=== PATIENT | male | born 1940 | race Caucasian/White ===

== ENCOUNTER 2021-09-10 13:39 | Inpatient (IN) | payer OTHER ==
[2021-09-10] MEDS ORDERED: PIPERACILLIN/TAZOB 4.5 GM 4.5 GM in DEXTROSE 5%-WATER 100 ML IVPB ONE (15:02)
[2021-09-10] MEDS ORDERED: VANCOMYCIN 1 GM in D5W (PRE-DOCKED) 1,000 MG/250 ML IVPB ONE (15:02)
[2021-09-10 15:43] LABS: BASO % 1.1 % (0-2.0); EOS % 0.6 % (0-4.5); HEMATOCRIT 37.1 % (35.4-49); HEMOGLOBIN 12.7 GM/dL (11.7-16.9); LYMPH % 16.5 % (8-40); MCH 41.4 pg (25.7-33.7); MCHC 34.1 g/dl (32.0-35.9); MEAN CELL VOLUME 121.2 fl (80-96); MEAN PLT VOLUME 7.1 fl (7.5-11.1); MONO % 9.1 % (3.8-10.2); NEUT % 72.7 % (42.8-82.8); PLATELET COUNT 459 10^3/uL (134-434); RBC 3.07 M/mm3 (4.00-5.60); RDW 13.9 % (11.9-15.9); WHITE BLOOD COUNT 3.8 K/mm3 (4.0-10.0)
[2021-09-10 15:50] LABS: INR 2.97 (0.83-1.09); PROTHROMBIN TIME (PATIENT) 34.5 SEC (9.7-13.0)
[2021-09-10 15:52] LABS: ACTIVATED PTT 43.3 SECONDS (25.2-36.5)
[2021-09-10 16:01] LABS: ANISOCYTOSIS 3+; MACROCYTOSIS 3+; OVALOCYTE 2+; PLATELET ESTIMATE INCREASED
[2021-09-10 16:07] LABS: BLOOD UREA NITROGEN 18.8 mg/dL (7-18); CALCIUM 8.6 mg/dL (8.5-10.1)
[2021-09-10 16:08] LABS: ALBUMIN 3.8 g/dl (3.4-5.0)
[2021-09-10 16:10] LABS: CREATININE 0.9 mg/dL (0.55-1.3)
[2021-09-10 16:12] LABS: BILIRUBIN,TOTAL 1.2 mg/dL (0.2-1)
[2021-09-10] MEDS ORDERED: PIPERACILLIN/TAZOB 4.5 GM 4.5 GM/100 ML BAG IVPB ONE (16:14)
[2021-09-10] MEDS ORDERED: VANCOMYCIN 1 GRAM (PRE-DOCKED) 1,000 MG/250 ML BAG IVPB ONE (16:14)
[2021-09-10] MEDS ORDERED: PANTOPRAZOLE 40 MG TABLET ONE (17:49)
[2021-09-10] MEDS ORDERED: WARFARIN NA 5 MG TABLET ONE (17:49)
[2021-09-10] MEDS: PANTOPRAZOLE 40 MG TABLET PO SCH (17:54)
[2021-09-10] MEDS ORDERED: WARFARIN NA 5 MG TABLET PO ONE (18:00)
[2021-09-10] MEDS: TERAZOSIN HCL 5 MG CAPSULE PO SCH (22:26)
[2021-09-11 08:29] LABS: BASO % 1.8 % (0-2.0); EOS % 0.8 % (0-4.5); HEMATOCRIT 35.3 % (35.4-49); HEMOGLOBIN 12.4 GM/dL (11.7-16.9); LYMPH % 22.7 % (8-40); MCHC 35.1 g/dl (32.0-35.9); MEAN CELL VOLUME 122.1 fl (80-96); MEAN PLT VOLUME 7.4 fl (7.5-11.1); MONO % 13.1 % (3.8-10.2); NEUT % 61.6 % (42.8-82.8); PLATELET COUNT 424 10^3/uL (134-434); RBC 2.89 M/mm3 (4.00-5.60); WHITE BLOOD COUNT 3.8 K/mm3 (4.0-10.0)
[2021-09-11 08:32] LABS: MCH 42.9 pg (25.7-33.7)
[2021-09-11 08:49] LABS: CHOLESTEROL 90 mg/dL (50-200); LDL CHOLESTEROL (ONLY SJRH) 40 mg/dL (5-100); TRIGLYCERIDES 108 mg/dL (0-150)
[2021-09-11 08:52] LABS: HDL CHOLESTEROL 32 mg/dL (40-60)
[2021-09-11 08:57] LABS: INR 2.95 (0.83-1.09); PROTHROMBIN TIME (PATIENT) 34.3 SEC (9.7-13.0)
[2021-09-11] MEDS: PANTOPRAZOLE 40 MG TABLET PO SCH (11:00)
[2021-09-11] MEDS: LOSARTAN POTASSIUM 50 MG TABLET PO SCH (11:00)
[2021-09-11] MEDS: FUROSEMIDE 40 MG TABLET (FP) PO SCH (11:00)
[2021-09-11] MEDS ORDERED: LOSARTAN POTASSIUM 50 MG TABLET ONE (11:30)
[2021-09-11] MEDS ORDERED: PANTOPRAZOLE 40 MG TABLET ONE (11:30)
[2021-09-11] MEDS ORDERED: FUROSEMIDE 40 MG TABLET (FP) ONE (11:30)
[2021-09-11] MEDS: COLLAGENASE CLOSTRIDIUM HIST. 30 GRAMS TUBE TP SCH (13:13)
[2021-09-11] MEDS: FINASTERIDE 5 MG TABLET (FP) PO SCH (13:13)
[2021-09-11] MEDS ORDERED: CHOLECALCIFEROL (VIT D3) 1,000 UNIT (25 MCG) TABLET ONE (16:52)
[2021-09-11] MEDS ORDERED: ZINC SULFATE 220 MG CAPSULE (FP) ONE (16:52)
[2021-09-11] MEDS ORDERED: PIPERACILLIN/TAZOB 3.375 GM 3.375 GM/50 ML BAG IVPB ONE (16:53)
[2021-09-11] MEDS: ZINC SULFATE 220 MG CAPSULE (FP) PO SCH (17:28)
[2021-09-11] MEDS: CHOLECALCIFEROL (VIT D3) 5000 UNITS (125 MCG) CAP PO SCH (17:29)
[2021-09-11] MEDS: PIPERACILLIN/TAZOB 3.375 GM 3.375 GM/50 ML BAG IVPB SCH ×2 (17:29→18:09)
[2021-09-11] MEDS ORDERED: WARFARIN NA 5 MG TABLET PO ONE (18:00)
[2021-09-11] MEDS: MELATONIN 5 MG TABLETS PO PRN (21:28)
[2021-09-11] MEDS: ASCORBIC ACID 500 MG TABLET (FP) PO SCH (21:29)
[2021-09-11] MEDS ORDERED: ASCORBIC ACID 500 MG TABLET (FP) PO SCH (22:00)
[2021-09-11] MEDS: TERAZOSIN HCL 5 MG CAPSULE PO SCH (23:35)
[2021-09-12] MEDS ORDERED: DEXTROSE 5%-WATER - 50 ML IVPB ONE ×3 (01:20→17:58)
[2021-09-12] MEDS ORDERED: PIPERACILLIN/TAZOBACTAM 3.375 GM VIAL IVPB ONE ×3 (01:20→17:58)
[2021-09-12] MEDS: PIPERACILLIN/TAZOB 3.375 GM 3.375 GM in DEXTROSE 5%-WATER - 50 ML IVPB SCH ×3 (01:20→18:03)
[2021-09-12] MEDS ORDERED: PT OWN MED DRAWER 7, Y5N ONE ×3 (09:25→21:43)
[2021-09-12 09:30] LABS: BASO % 1.7 % (0-2.0); EOS % 1.4 % (0-4.5); HEMATOCRIT 36.9 % (35.4-49); HEMOGLOBIN 12.7 GM/dL (11.7-16.9); LYMPH % 20.2 % (8-40); MCHC 34.3 g/dl (32.0-35.9); MEAN CELL VOLUME 122.3 fl (80-96); MEAN PLT VOLUME 7.4 fl (7.5-11.1); MONO % 10.4 % (3.8-10.2); NEUT % 66.3 % (42.8-82.8); PLATELET COUNT 440 10^3/uL (134-434); RBC 3.02 M/mm3 (4.00-5.60); RDW 13.6 % (11.9-15.9); WHITE BLOOD COUNT 3.6 K/mm3 (4.0-10.0)
[2021-09-12] MEDS: LOSARTAN POTASSIUM 50 MG TABLET PO SCH (09:30)
[2021-09-12] MEDS: FUROSEMIDE 40 MG TABLET (FP) PO SCH (09:31)
[2021-09-12] MEDS: PANTOPRAZOLE 40 MG TABLET PO SCH (09:31)
[2021-09-12] MEDS: ZINC SULFATE 220 MG CAPSULE (FP) PO SCH (09:31)
[2021-09-12] MEDS: ASCORBIC ACID 500 MG TABLET (FP) PO SCH ×2 (09:31→22:05)
[2021-09-12] MEDS: FINASTERIDE 5 MG TABLET (FP) PO SCH (09:31)
[2021-09-12 09:39] LABS: INR 3.51 (0.83-1.09); PROTHROMBIN TIME (PATIENT) 40.9 SEC (9.7-13.0)
[2021-09-12] MEDS ORDERED: FLU VACC QS2021-22(6MOS UP)/PF 60 MCG/0.5 ML SYRINGE IM ONE (10:00)
[2021-09-12] MEDS: COLLAGENASE CLOSTRIDIUM HIST. 30 GRAMS TUBE TP SCH (10:30)
[2021-09-12] MEDS: CHOLECALCIFEROL (VIT D3) 5000 UNITS (125 MCG) CAP PO SCH (10:37)
[2021-09-12] MEDS: VITAMIN A 10,000 UNITS (3000 MCG) CAPSULE PO SCH (10:38)
[2021-09-12] MEDS ORDERED: WARFARIN NA 2.5 MG TABLET PO ONE (18:00)
[2021-09-12] MEDS: TERAZOSIN HCL 5 MG CAPSULE PO SCH (22:05)
[2021-09-12] MEDS: MELATONIN 5 MG TABLETS PO PRN (22:05)
[2021-09-13] MEDS ORDERED: PIPERACILLIN/TAZOBACTAM 3.375 GM VIAL IVPB ONE ×3 (00:54→17:13)
[2021-09-13] MEDS ORDERED: DEXTROSE 5%-WATER - 50 ML IVPB ONE ×3 (00:55→17:13)
[2021-09-13] MEDS: PIPERACILLIN/TAZOB 3.375 GM 3.375 GM in DEXTROSE 5%-WATER - 50 ML IVPB SCH ×3 (01:01→18:37)
[2021-09-13 09:19] LABS: BASO % 1.4 % (0-2.0); EOS % 2.4 % (0-4.5); HEMATOCRIT 37.1 % (35.4-49); HEMOGLOBIN 12.8 GM/dL (11.7-16.9); LYMPH % 19.2 % (8-40); MCHC 34.4 g/dl (32.0-35.9); MEAN CELL VOLUME 121.3 fl (80-96); MEAN PLT VOLUME 7.6 fl (7.5-11.1); MONO % 11.1 % (3.8-10.2); NEUT % 65.9 % (42.8-82.8); PLATELET COUNT 425 10^3/uL (134-434); RBC 3.06 M/mm3 (4.00-5.60); RDW 13.4 % (11.9-15.9); WHITE BLOOD COUNT 3.3 K/mm3 (4.0-10.0)
[2021-09-13 09:20] LABS: MCH 41.8 pg (25.7-33.7)
[2021-09-13 09:25] LABS: INR 3.59 (0.83-1.09); PROTHROMBIN TIME (PATIENT) 41.8 SEC (9.7-13.0)
[2021-09-13] MEDS: ZINC SULFATE 220 MG CAPSULE (FP) PO SCH (09:49)
[2021-09-13] MEDS: LOSARTAN POTASSIUM 50 MG TABLET PO SCH (09:49)
[2021-09-13] MEDS: ASCORBIC ACID 500 MG TABLET (FP) PO SCH ×2 (09:49→21:28)
[2021-09-13] MEDS: FUROSEMIDE 40 MG TABLET (FP) PO SCH (09:49)
[2021-09-13] MEDS: PANTOPRAZOLE 40 MG TABLET PO SCH (09:49)
[2021-09-13] MEDS: FINASTERIDE 5 MG TABLET (FP) PO SCH (09:49)
[2021-09-13] MEDS: VITAMIN A 10,000 UNITS (3000 MCG) CAPSULE PO SCH (09:50)
[2021-09-13] MEDS: CHOLECALCIFEROL (VIT D3) 5000 UNITS (125 MCG) CAP PO SCH (09:51)
[2021-09-13] MEDS: COLLAGENASE CLOSTRIDIUM HIST. 30 GRAMS TUBE TP SCH (09:53)
[2021-09-13] MEDS ORDERED: WARFARIN NA 1 MG TABLET PO ONE (18:00)
[2021-09-13] MEDS ORDERED: PT OWN MED DRAWER 7, Y5N ONE (21:03)
[2021-09-13] MEDS: MELATONIN 5 MG TABLETS PO PRN (21:28)
[2021-09-13] MEDS: TERAZOSIN HCL 5 MG CAPSULE PO SCH (21:28)
[2021-09-14] MEDS ORDERED: DEXTROSE 5%-WATER - 50 ML IVPB ONE ×4 (00:48→23:01)
[2021-09-14] MEDS ORDERED: PIPERACILLIN/TAZOBACTAM 3.375 GM VIAL IVPB ONE ×4 (00:48→23:01)
[2021-09-14] MEDS: PIPERACILLIN/TAZOB 3.375 GM 3.375 GM in DEXTROSE 5%-WATER - 50 ML IVPB SCH ×3 (02:04→17:27)
[2021-09-14] MEDS ORDERED: PT OWN MED DRAWER 7, Y5N ONE ×2 (09:12→20:52)
[2021-09-14] MEDS: COLLAGENASE CLOSTRIDIUM HIST. 30 GRAMS TUBE TP SCH (09:17)
[2021-09-14] MEDS: ASCORBIC ACID 500 MG TABLET (FP) PO SCH ×2 (09:18→21:23)
[2021-09-14] MEDS: VITAMIN A 10,000 UNITS (3000 MCG) CAPSULE PO SCH (09:18)
[2021-09-14] MEDS: PANTOPRAZOLE 40 MG TABLET PO SCH (09:18)
[2021-09-14] MEDS: FUROSEMIDE 40 MG TABLET (FP) PO SCH (09:19)
[2021-09-14] MEDS: CHOLECALCIFEROL (VIT D3) 5000 UNITS (125 MCG) CAP PO SCH (09:19)
[2021-09-14] MEDS: ZINC SULFATE 220 MG CAPSULE (FP) PO SCH (09:19)
[2021-09-14] MEDS: FINASTERIDE 5 MG TABLET (FP) PO SCH (09:19)
[2021-09-14] MEDS: LOSARTAN POTASSIUM 50 MG TABLET PO SCH (09:19)
[2021-09-14 11:58] LABS: INR 3.41 (0.83-1.09); PROTHROMBIN TIME (PATIENT) 39.7 SEC (9.7-13.0)
[2021-09-14 11:59] LABS: BASO % 1.2 % (0-2.0); HEMATOCRIT 34.5 % (35.4-49); HEMOGLOBIN 11.9 GM/dL (11.7-16.9); LYMPH % 15.7 % (8-40); MCHC 34.5 g/dl (32.0-35.9); MEAN CELL VOLUME 121.3 fl (80-96); MEAN PLT VOLUME 7.6 fl (7.5-11.1); MONO % 12.9 % (3.8-10.2); NEUT % 68.2 % (42.8-82.8); PLATELET COUNT 442 10^3/uL (134-434); RBC 2.85 M/mm3 (4.00-5.60); RDW 13.6 % (11.9-15.9); WHITE BLOOD COUNT 4.4 K/mm3 (4.0-10.0)
[2021-09-14 12:24] LABS: MCH 41.8 pg (25.7-33.7)
[2021-09-14 13:50] LABS: ANISOCYTOSIS 3+; MACROCYTOSIS 3+; OVALOCYTE 1+; PLATELET ESTIMATE NORMAL
[2021-09-14] MEDS ORDERED: WARFARIN NA 1 MG TABLET PO ONE (18:00)
[2021-09-14] MEDS: TERAZOSIN HCL 5 MG CAPSULE PO SCH (21:23)
[2021-09-14] MEDS: MELATONIN 5 MG TABLETS PO PRN (21:23)
[2021-09-14 22:47] VITALS: BMI 30.4
[2021-09-15] MEDS: PIPERACILLIN/TAZOB 3.375 GM 3.375 GM in DEXTROSE 5%-WATER - 50 ML IVPB SCH ×3 (02:30→17:14)
[2021-09-15] MEDS ORDERED: DEXTROSE 5%-WATER - 50 ML IVPB ONE ×3 (09:29→17:10)
[2021-09-15] MEDS ORDERED: PIPERACILLIN/TAZOBACTAM 3.375 GM VIAL IVPB ONE ×3 (09:29→17:10)
[2021-09-15] MEDS: LOSARTAN POTASSIUM 50 MG TABLET PO SCH (09:36)
[2021-09-15] MEDS: ASCORBIC ACID 500 MG TABLET (FP) PO SCH ×2 (09:37→21:23)
[2021-09-15] MEDS: FUROSEMIDE 40 MG TABLET (FP) PO SCH (09:37)
[2021-09-15] MEDS: FINASTERIDE 5 MG TABLET (FP) PO SCH (09:37)
[2021-09-15] MEDS: ZINC SULFATE 220 MG CAPSULE (FP) PO SCH (09:37)
[2021-09-15] MEDS: PANTOPRAZOLE 40 MG TABLET PO SCH (09:37)
[2021-09-15 11:00] LABS: BASO % 1.9 % (0-2.0); EOS % 3.3 % (0-4.5); HEMOGLOBIN 12.2 GM/dL (11.7-16.9); LYMPH % 17.9 % (8-40); MCHC 33.9 g/dl (32.0-35.9); MEAN CELL VOLUME 122.7 fl (80-96); MEAN PLT VOLUME 7.8 fl (7.5-11.1); MONO % 10.1 % (3.8-10.2); NEUT % 66.8 % (42.8-82.8); PLATELET COUNT 427 10^3/uL (134-434); RBC 2.94 M/mm3 (4.00-5.60); RDW 13.6 % (11.9-15.9); WHITE BLOOD COUNT 4.4 K/mm3 (4.0-10.0)
[2021-09-15 11:06] LABS: INR 2.84 (0.83-1.09); MCH 41.6 pg (25.7-33.7)
[2021-09-15] MEDS: VITAMIN A 10,000 UNITS (3000 MCG) CAPSULE PO SCH (12:30)
[2021-09-15] MEDS: CHOLECALCIFEROL (VIT D3) 5000 UNITS (125 MCG) CAP PO SCH (12:30)
[2021-09-15] MEDS: COLLAGENASE CLOSTRIDIUM HIST. 30 GRAMS TUBE TP SCH (12:31)
[2021-09-15] MEDS ORDERED: WARFARIN NA 2.5 MG TABLET PO ONE (18:00)
[2021-09-15] MEDS: MELATONIN 5 MG TABLETS PO PRN (21:23)
[2021-09-15] MEDS: TERAZOSIN HCL 5 MG CAPSULE PO SCH (21:24)
[2021-09-16] MEDS ORDERED: DEXTROSE 5%-WATER - 50 ML IVPB ONE ×3 (01:20→17:07)
[2021-09-16] MEDS ORDERED: PIPERACILLIN/TAZOBACTAM 3.375 GM VIAL IVPB ONE ×3 (01:20→17:07)
[2021-09-16] MEDS: PIPERACILLIN/TAZOB 3.375 GM 3.375 GM in DEXTROSE 5%-WATER - 50 ML IVPB SCH ×3 (01:20→17:23)
[2021-09-16 08:38] LABS: BASO % 2.4 % (0-2.0); EOS % 3.5 % (0-4.5); HEMATOCRIT 37.6 % (35.4-49); HEMOGLOBIN 12.6 GM/dL (11.7-16.9); LYMPH % 19.1 % (8-40); MCHC 33.5 g/dl (32.0-35.9); MEAN PLT VOLUME 7.9 fl (7.5-11.1); MONO % 12.2 % (3.8-10.2); NEUT % 62.8 % (42.8-82.8); PLATELET COUNT 493 10^3/uL (134-434); RDW 13.2 % (11.9-15.9); WHITE BLOOD COUNT 4.9 K/mm3 (4.0-10.0)
[2021-09-16 08:40] LABS: MCH 40.5 pg (25.7-33.7)
[2021-09-16 08:42] LABS: INR 2.24 (0.83-1.09)
[2021-09-16 08:56] LABS: CALCIUM 8.4 mg/dL (8.5-10.1)
[2021-09-16 08:57] LABS: ALBUMIN 3.3 g/dl (3.4-5.0); BLOOD UREA NITROGEN 19.3 mg/dL (7-18)
[2021-09-16 09:02] LABS: BILIRUBIN,TOTAL 0.8 mg/dL (0.2-1); TOT PROT 6.1 g/dl (6.4-8.2)
[2021-09-16] MEDS: LOSARTAN POTASSIUM 50 MG TABLET PO SCH (11:09)
[2021-09-16] MEDS: COLLAGENASE CLOSTRIDIUM HIST. 30 GRAMS TUBE TP SCH (11:10)
[2021-09-16] MEDS: ASCORBIC ACID 500 MG TABLET (FP) PO SCH ×2 (11:10→22:10)
[2021-09-16] MEDS: FUROSEMIDE 40 MG TABLET (FP) PO SCH (11:10)
[2021-09-16] MEDS: ZINC SULFATE 220 MG CAPSULE (FP) PO SCH (11:10)
[2021-09-16] MEDS: PANTOPRAZOLE 40 MG TABLET PO SCH (11:10)
[2021-09-16] MEDS: VITAMIN A 10,000 UNITS (3000 MCG) CAPSULE PO SCH (11:11)
[2021-09-16] MEDS: FINASTERIDE 5 MG TABLET (FP) PO SCH (11:11)
[2021-09-16] MEDS: CHOLECALCIFEROL (VIT D3) 5000 UNITS (125 MCG) CAP PO SCH (11:11)
[2021-09-16] MEDS: TERAZOSIN HCL 5 MG CAPSULE PO SCH (22:09)
[2021-09-16] MEDS: MELATONIN 5 MG TABLETS PO PRN (22:10)
[2021-09-17] MEDS ORDERED: PIPERACILLIN/TAZOBACTAM 3.375 GM VIAL IVPB ONE ×2 (00:09→17:04)
[2021-09-17] MEDS ORDERED: DEXTROSE 5%-WATER - 50 ML IVPB ONE ×2 (00:10→17:04)
[2021-09-17] MEDS: PIPERACILLIN/TAZOB 3.375 GM 3.375 GM in DEXTROSE 5%-WATER - 50 ML IVPB SCH ×3 (01:06→17:45)
[2021-09-17] MEDS ORDERED: LIDOCAINE HCL 1%, 10 MG/ML (20ML VIAL) ONE (07:19)
[2021-09-17] MEDS ORDERED: BUPIVACAINE HCL/PF 0.5% (5MG/ML) 10 ML VIAL ONE ×2 (07:19→07:41)
[2021-09-17] MEDS ORDERED: PROPOFOL 20 ML ONE ×2 (07:37)
[2021-09-17] MEDS ORDERED: DEXAMETHASONE SOD PHOSPHATE 4 MG/1 ML VIAL ONE (07:41)
[2021-09-17 08:18] LABS: INR 1.9 (0.83-1.09)
[2021-09-17] MEDS: ZINC SULFATE 220 MG CAPSULE (FP) PO SCH (10:00)
[2021-09-17] MEDS: FINASTERIDE 5 MG TABLET (FP) PO SCH (10:00)
[2021-09-17] MEDS: ASCORBIC ACID 500 MG TABLET (FP) PO SCH ×2 (10:01→21:50)
[2021-09-17] MEDS: CHOLECALCIFEROL (VIT D3) 5000 UNITS (125 MCG) CAP PO SCH (10:01)
[2021-09-17] MEDS: LOSARTAN POTASSIUM 50 MG TABLET PO SCH (10:01)
[2021-09-17] MEDS: COLLAGENASE CLOSTRIDIUM HIST. 30 GRAMS TUBE TP SCH (10:01)
[2021-09-17] MEDS: VITAMIN A 10,000 UNITS (3000 MCG) CAPSULE PO SCH (10:01)
[2021-09-17] MEDS: FUROSEMIDE 40 MG TABLET (FP) PO SCH (10:01)
[2021-09-17] MEDS: PANTOPRAZOLE 40 MG TABLET PO SCH (10:01)
[2021-09-17] MEDS ORDERED: WARFARIN NA 5 MG TABLET PO ONE (18:00)
[2021-09-17] MEDS: TERAZOSIN HCL 5 MG CAPSULE PO SCH (21:50)
[2021-09-17] MEDS: MELATONIN 5 MG TABLETS PO PRN (21:53)
[2021-09-18] MEDS ORDERED: PIPERACILLIN/TAZOBACTAM 3.375 GM VIAL IVPB ONE ×3 (02:20→17:25)
[2021-09-18] MEDS ORDERED: DEXTROSE 5%-WATER - 50 ML IVPB ONE ×3 (02:20→17:25)
[2021-09-18] MEDS: PIPERACILLIN/TAZOB 3.375 GM 3.375 GM in DEXTROSE 5%-WATER - 50 ML IVPB SCH ×3 (02:25→17:51)
[2021-09-18] MEDS: FINASTERIDE 5 MG TABLET (FP) PO SCH (09:34)
[2021-09-18] MEDS: VITAMIN A 10,000 UNITS (3000 MCG) CAPSULE PO SCH (09:34)
[2021-09-18] MEDS: ASCORBIC ACID 500 MG TABLET (FP) PO SCH ×2 (09:34→21:20)
[2021-09-18] MEDS: LOSARTAN POTASSIUM 50 MG TABLET PO SCH (09:34)
[2021-09-18] MEDS: FUROSEMIDE 40 MG TABLET (FP) PO SCH (09:34)
[2021-09-18] MEDS: PANTOPRAZOLE 40 MG TABLET PO SCH (09:34)
[2021-09-18] MEDS: ZINC SULFATE 220 MG CAPSULE (FP) PO SCH (09:34)
[2021-09-18] MEDS: CHOLECALCIFEROL (VIT D3) 5000 UNITS (125 MCG) CAP PO SCH (09:35)
[2021-09-18] MEDS: COLLAGENASE CLOSTRIDIUM HIST. 30 GRAMS TUBE TP SCH (10:17)
[2021-09-18 10:27] LABS: INR 1.57 (0.83-1.09); PROTHROMBIN TIME (PATIENT) 18.1 SEC (9.7-13.0)
[2021-09-18 10:28] LABS: BASO % 2.6 % (0-2.0); EOS % 2.5 % (0-4.5); HEMOGLOBIN 12.5 GM/dL (11.7-16.9); LYMPH % 14.6 % (8-40); MCH 41.8 pg (25.7-33.7); MCHC 34.8 g/dl (32.0-35.9); MEAN CELL VOLUME 120.1 fl (80-96); MEAN PLT VOLUME 7.9 fl (7.5-11.1); MONO % 11.2 % (3.8-10.2); NEUT % 69.1 % (42.8-82.8); PLATELET COUNT 520 10^3/uL (134-434); RDW 13.2 % (11.9-15.9); WHITE BLOOD COUNT 4.9 K/mm3 (4.0-10.0)
[2021-09-18 12:32] LABS: ANISOCYTOSIS 2+; MACROCYTOSIS 2+; OVALOCYTE 1+; PLATELET ESTIMATE INCREASED; TEAR DROP CELLS 1+
[2021-09-18] MEDS: TERAZOSIN HCL 5 MG CAPSULE PO SCH (21:20)
[2021-09-18] MEDS: MELATONIN 5 MG TABLETS PO PRN (21:25)
[2021-09-19] MEDS: ZINC SULFATE 220 MG CAPSULE (FP) PO SCH (09:14)
[2021-09-19] MEDS: LOSARTAN POTASSIUM 50 MG TABLET PO SCH (09:14)
[2021-09-19] MEDS: FINASTERIDE 5 MG TABLET (FP) PO SCH (09:14)
[2021-09-19] MEDS: VITAMIN A 10,000 UNITS (3000 MCG) CAPSULE PO SCH (09:14)
[2021-09-19] MEDS: FUROSEMIDE 40 MG TABLET (FP) PO SCH (09:14)
[2021-09-19] MEDS: PANTOPRAZOLE 40 MG TABLET PO SCH (09:14)
[2021-09-19] MEDS: CHOLECALCIFEROL (VIT D3) 5000 UNITS (125 MCG) CAP PO SCH (09:14)
[2021-09-19] MEDS: ASCORBIC ACID 500 MG TABLET (FP) PO SCH ×2 (09:14→21:08)
[2021-09-19 11:26] LABS: INR 1.5 (0.83-1.09); PROTHROMBIN TIME (PATIENT) 17.3 SEC (9.7-13.0)
[2021-09-19] MEDS: COLLAGENASE CLOSTRIDIUM HIST. 30 GRAMS TUBE TP SCH (11:48)
[2021-09-19] MEDS: MELATONIN 5 MG TABLETS PO PRN (21:08)
[2021-09-19] MEDS: TERAZOSIN HCL 5 MG CAPSULE PO SCH (21:08)
[2021-09-19] MEDS ORDERED: DEXTROSE 5%-WATER - 50 ML IVPB ONE (22:13)
[2021-09-19] MEDS ORDERED: PIPERACILLIN/TAZOBACTAM 3.375 GM VIAL IVPB ONE (22:13)
[2021-09-19] MEDS: PIPERACILLIN/TAZOB 3.375 GM 3.375 GM in DEXTROSE 5%-WATER - 50 ML IVPB SCH (22:19)
[2021-09-20] MEDS ORDERED: PIPERACILLIN/TAZOBACTAM 3.375 GM VIAL IVPB ONE ×3 (05:42→22:22)
[2021-09-20] MEDS ORDERED: DEXTROSE 5%-WATER - 50 ML IVPB ONE ×3 (05:43→22:22)
[2021-09-20] MEDS: PIPERACILLIN/TAZOB 3.375 GM 3.375 GM in DEXTROSE 5%-WATER - 50 ML IVPB SCH ×3 (06:13→22:35)
[2021-09-20] MEDS: LOSARTAN POTASSIUM 50 MG TABLET PO SCH (09:00)
[2021-09-20] MEDS: ZINC SULFATE 220 MG CAPSULE (FP) PO SCH (09:03)
[2021-09-20] MEDS: PANTOPRAZOLE 40 MG TABLET PO SCH (09:03)
[2021-09-20] MEDS: VITAMIN A 10,000 UNITS (3000 MCG) CAPSULE PO SCH (09:03)
[2021-09-20] MEDS: FINASTERIDE 5 MG TABLET (FP) PO SCH (09:04)
[2021-09-20] MEDS: CHOLECALCIFEROL (VIT D3) 5000 UNITS (125 MCG) CAP PO SCH (09:04)
[2021-09-20] MEDS: FUROSEMIDE 40 MG TABLET (FP) PO SCH (09:04)
[2021-09-20] MEDS: ACETAMINOPHEN 325 MG TABLET (FP) PO PRN (09:04)
[2021-09-20] MEDS: ASCORBIC ACID 500 MG TABLET (FP) PO SCH ×2 (09:04→22:35)
[2021-09-20] MEDS: COLLAGENASE CLOSTRIDIUM HIST. 30 GRAMS TUBE TP SCH (09:05)
[2021-09-20 12:35] LABS: INR 1.37 (0.83-1.09); PROTHROMBIN TIME (PATIENT) 15.8 SEC (9.7-13.0)
[2021-09-20 12:36] LABS: BASO % 0.6 % (0-2.0); EOS % 2.1 % (0-4.5); HEMATOCRIT 38.4 % (35.4-49); HEMOGLOBIN 12.7 GM/dL (11.7-16.9); LYMPH % 6.9 % (8-40); MCHC 33.1 g/dl (32.0-35.9); MEAN CELL VOLUME 122.1 fl (80-96); MEAN PLT VOLUME 7.7 fl (7.5-11.1); NEUT % 76.4 % (42.8-82.8); PLATELET COUNT 673 10^3/uL (134-434); RBC 3.15 M/mm3 (4.00-5.60); RDW 13.4 % (11.9-15.9); WHITE BLOOD COUNT 5.6 K/mm3 (4.0-10.0)
[2021-09-20 12:39] LABS: MCH 40.4 pg (25.7-33.7)
[2021-09-20 13:24] LABS: CALCIUM 8.6 mg/dL (8.5-10.1)
[2021-09-20 13:25] LABS: BLOOD UREA NITROGEN 19.6 mg/dL (7-18)
[2021-09-20 13:28] LABS: CREATININE 1.1 mg/dL (0.55-1.3)
[2021-09-20] MEDS: TERAZOSIN HCL 5 MG CAPSULE PO SCH (22:35)
[2021-09-20] MEDS: MELATONIN 5 MG TABLETS PO PRN (22:36)
[2021-09-21] MEDS ORDERED: DEXTROSE 5%-WATER - 50 ML IVPB ONE ×3 (05:55→21:09)
[2021-09-21] MEDS ORDERED: PIPERACILLIN/TAZOBACTAM 3.375 GM VIAL IVPB ONE ×3 (05:55→21:08)
[2021-09-21] MEDS: PIPERACILLIN/TAZOB 3.375 GM 3.375 GM in DEXTROSE 5%-WATER - 50 ML IVPB SCH ×3 (06:03→21:11)
[2021-09-21] MEDS ORDERED: PROPOFOL 20 ML ONE ×3 (07:15)
[2021-09-21] MEDS ORDERED: MIDAZOLAM HCL 2 MG/2 ML SINGLE DOSE VIAL ONE (07:15)
[2021-09-21] MEDS ORDERED: SUCCINYLCHOLINE CHLORIDE 200 MG/10 ML SYRINGE ONE (07:16)
[2021-09-21] MEDS ORDERED: GENTAMICIN SO4 80 MG/2 ML VIAL ONE (07:32)
[2021-09-21] MEDS ORDERED: PROMETHAZINE HCL 25 MG/1 ML VIAL IVPUSH PRN (07:37)
[2021-09-21] MEDS ORDERED: ONDANSETRON 4 MG/2 ML VIAL IVPUSH PRN (07:37)
[2021-09-21] MEDS ORDERED: LACTATED RINGERS SOLUTION 1,000 ML IV SCH ×2 (07:45→20:03)
[2021-09-21] MEDS ORDERED: LIDOCAINE HCL 1%, 10 MG/ML (20ML VIAL) NR ONE (07:50)
[2021-09-21] MEDS ORDERED: BUPIVACAINE HCL/PF 0.5% (5MG/ML) 10 ML VIAL IJ ONE (07:50)
[2021-09-21] MEDS: COLLAGENASE CLOSTRIDIUM HIST. 30 GRAMS TUBE TP SCH (09:33)
[2021-09-21] MEDS: ZINC SULFATE 220 MG CAPSULE (FP) PO SCH (09:35)
[2021-09-21] MEDS: FINASTERIDE 5 MG TABLET (FP) PO SCH (09:36)
[2021-09-21] MEDS: PANTOPRAZOLE 40 MG TABLET PO SCH (09:36)
[2021-09-21] MEDS: LOSARTAN POTASSIUM 50 MG TABLET PO SCH (09:36)
[2021-09-21] MEDS: ASCORBIC ACID 500 MG TABLET (FP) PO SCH ×2 (09:36→21:11)
[2021-09-21] MEDS: FUROSEMIDE 40 MG TABLET (FP) PO SCH (09:36)
[2021-09-21] MEDS: VITAMIN A 10,000 UNITS (3000 MCG) CAPSULE PO SCH (09:38)
[2021-09-21] MEDS: CHOLECALCIFEROL (VIT D3) 5000 UNITS (125 MCG) CAP PO SCH (09:38)
[2021-09-21 13:20] LABS: BASO % 1.7 % (0-2.0); EOS % 3.2 % (0-4.5); HEMOGLOBIN 12.6 GM/dL (11.7-16.9); INR 1.32 (0.83-1.09); LYMPH % 10.9 % (8-40); MCHC 34.1 g/dl (32.0-35.9); MEAN CELL VOLUME 119.5 fl (80-96); MEAN PLT VOLUME 7.4 fl (7.5-11.1); NEUT % 72.2 % (42.8-82.8); PLATELET COUNT 644 10^3/uL (134-434); PROTHROMBIN TIME (PATIENT) 15.2 SEC (9.7-13.0); RDW 13.6 % (11.9-15.9); WHITE BLOOD COUNT 4.9 K/mm3 (4.0-10.0)
[2021-09-21 13:42] LABS: MCH 40.8 pg (25.7-33.7)
[2021-09-21] MEDS: ACETAMINOPHEN 325 MG TABLET (FP) PO PRN ×2 (14:20→21:11)
[2021-09-21] MEDS ORDERED: WARFARIN NA 5 MG TABLET PO ONE (18:00)
[2021-09-21] MEDS: MELATONIN 5 MG TABLETS PO PRN (21:11)
[2021-09-21] MEDS: TERAZOSIN HCL 5 MG CAPSULE PO SCH (21:13)
[2021-09-22] MEDS ORDERED: DEXTROSE 5%-WATER - 50 ML IVPB ONE ×3 (04:51→20:34)
[2021-09-22] MEDS ORDERED: PIPERACILLIN/TAZOBACTAM 3.375 GM VIAL IVPB ONE ×3 (04:51→20:34)
[2021-09-22] MEDS: PIPERACILLIN/TAZOB 3.375 GM 3.375 GM in DEXTROSE 5%-WATER - 50 ML IVPB SCH ×3 (05:30→21:04)
[2021-09-22] MEDS: ACETAMINOPHEN 325 MG TABLET (FP) PO PRN ×2 (05:33→20:59)
[2021-09-22] MEDS: ZINC SULFATE 220 MG CAPSULE (FP) PO SCH (09:21)
[2021-09-22] MEDS: PANTOPRAZOLE 40 MG TABLET PO SCH (09:21)
[2021-09-22] MEDS: FUROSEMIDE 40 MG TABLET (FP) PO SCH (09:21)
[2021-09-22] MEDS: LOSARTAN POTASSIUM 50 MG TABLET PO SCH (09:21)
[2021-09-22] MEDS: FINASTERIDE 5 MG TABLET (FP) PO SCH (09:21)
[2021-09-22] MEDS: ASCORBIC ACID 500 MG TABLET (FP) PO SCH ×2 (09:21→20:59)
[2021-09-22] MEDS: VITAMIN A 10,000 UNITS (3000 MCG) CAPSULE PO SCH (09:21)
[2021-09-22] MEDS: CHOLECALCIFEROL (VIT D3) 5000 UNITS (125 MCG) CAP PO SCH (09:22)
[2021-09-22 10:43] LABS: INR 1.48 (0.83-1.09); PROTHROMBIN TIME (PATIENT) 17.1 SEC (9.7-13.0)
[2021-09-22] MEDS ORDERED: WARFARIN NA 5 MG TABLET PO ONE (18:00)
[2021-09-22] MEDS: MELATONIN 5 MG TABLETS PO PRN (20:59)
[2021-09-22] MEDS: TERAZOSIN HCL 5 MG CAPSULE PO SCH (20:59)
[2021-09-23] MEDS ORDERED: PIPERACILLIN/TAZOBACTAM 3.375 GM VIAL IVPB ONE ×3 (04:38→21:49)
[2021-09-23] MEDS ORDERED: DEXTROSE 5%-WATER - 50 ML IVPB ONE ×3 (04:39→21:49)
[2021-09-23] MEDS: PIPERACILLIN/TAZOB 3.375 GM 3.375 GM in DEXTROSE 5%-WATER - 50 ML IVPB SCH ×3 (06:28→21:53)
[2021-09-23] MEDS: ZINC SULFATE 220 MG CAPSULE (FP) PO SCH (09:59)
[2021-09-23] MEDS: ASCORBIC ACID 500 MG TABLET (FP) PO SCH ×2 (09:59→21:53)
[2021-09-23] MEDS: FINASTERIDE 5 MG TABLET (FP) PO SCH (10:00)
[2021-09-23] MEDS: PANTOPRAZOLE 40 MG TABLET PO SCH (10:00)
[2021-09-23] MEDS: VITAMIN A 10,000 UNITS (3000 MCG) CAPSULE PO SCH (10:00)
[2021-09-23] MEDS: FUROSEMIDE 40 MG TABLET (FP) PO SCH (10:00)
[2021-09-23] MEDS: LOSARTAN POTASSIUM 50 MG TABLET PO SCH (10:00)
[2021-09-23] MEDS: CHOLECALCIFEROL (VIT D3) 5000 UNITS (125 MCG) CAP PO SCH (10:01)
[2021-09-23 11:41] LABS: BASO % 1.5 % (0-2.0); EOS % 1.8 % (0-4.5); HEMATOCRIT 33.8 % (35.4-49); HEMOGLOBIN 11.3 GM/dL (11.7-16.9); LYMPH % 8.2 % (8-40); MCH 39.9 pg (25.7-33.7); MCHC 33.4 g/dl (32.0-35.9); MEAN CELL VOLUME 119.5 fl (80-96); MEAN PLT VOLUME 7.8 fl (7.5-11.1); MONO % 13.2 % (3.8-10.2); NEUT % 75.3 % (42.8-82.8); PLATELET COUNT 697 10^3/uL (134-434); RBC 2.83 M/mm3 (4.00-5.60); RDW 13.6 % (11.9-15.9); WHITE BLOOD COUNT 6.5 K/mm3 (4.0-10.0)
[2021-09-23 11:48] LABS: INR 1.47 (0.83-1.09)
[2021-09-23] MEDS ORDERED: WARFARIN NA 10 MG TABLET PO ONE (18:00)
[2021-09-23] MEDS: TERAZOSIN HCL 5 MG CAPSULE PO SCH (21:53)
[2021-09-24] MEDS ORDERED: PIPERACILLIN/TAZOBACTAM 3.375 GM VIAL IVPB ONE ×3 (05:58→20:42)
[2021-09-24] MEDS ORDERED: DEXTROSE 5%-WATER - 50 ML IVPB ONE ×3 (05:59→20:42)
[2021-09-24] MEDS: PIPERACILLIN/TAZOB 3.375 GM 3.375 GM in DEXTROSE 5%-WATER - 50 ML IVPB SCH ×3 (06:11→21:25)
[2021-09-24 10:37] LABS: BASO % 3.1 % (0-2.0); EOS % 1.9 % (0-4.5); HEMATOCRIT 37.7 % (35.4-49); HEMOGLOBIN 12.7 GM/dL (11.7-16.9); LYMPH % 7.4 % (8-40); MCH 39.8 pg (25.7-33.7); MCHC 33.7 g/dl (32.0-35.9); MEAN CELL VOLUME 118.4 fl (80-96); MEAN PLT VOLUME 7.4 fl (7.5-11.1); MONO % 11.6 % (3.8-10.2); PLATELET COUNT 814 10^3/uL (134-434); RBC 3.19 M/mm3 (4.00-5.60); RDW 13.7 % (11.9-15.9); WHITE BLOOD COUNT 5.8 K/mm3 (4.0-10.0)
[2021-09-24 10:38] LABS: INR 1.75 (0.83-1.09); PROTHROMBIN TIME (PATIENT) 20.2 SEC (9.7-13.0)
[2021-09-24] MEDS: ASCORBIC ACID 500 MG TABLET (FP) PO SCH ×2 (10:57→21:25)
[2021-09-24] MEDS: ZINC SULFATE 220 MG CAPSULE (FP) PO SCH (10:57)
[2021-09-24] MEDS: FUROSEMIDE 40 MG TABLET (FP) PO SCH (10:58)
[2021-09-24] MEDS: LOSARTAN POTASSIUM 50 MG TABLET PO SCH (10:58)
[2021-09-24] MEDS: PANTOPRAZOLE 40 MG TABLET PO SCH (10:58)
[2021-09-24] MEDS: FINASTERIDE 5 MG TABLET (FP) PO SCH (10:58)
[2021-09-24] MEDS: CHOLECALCIFEROL (VIT D3) 5000 UNITS (125 MCG) CAP PO SCH (10:59)
[2021-09-24] MEDS: VITAMIN A 10,000 UNITS (3000 MCG) CAPSULE PO SCH (10:59)
[2021-09-24] MEDS ORDERED: WARFARIN NA 7.5 MG TABLET PO ONE (18:00)
[2021-09-24] MEDS: TERAZOSIN HCL 5 MG CAPSULE PO SCH (21:27)
[2021-09-24] MEDS: MELATONIN 5 MG TABLETS PO PRN (21:33)
[2021-09-25] MEDS ORDERED: DEXTROSE 5%-WATER - 50 ML IVPB ONE ×3 (05:03→21:00)
[2021-09-25] MEDS ORDERED: PIPERACILLIN/TAZOBACTAM 3.375 GM VIAL IVPB ONE ×3 (05:03→21:00)
[2021-09-25] MEDS: ACETAMINOPHEN 325 MG TABLET (FP) PO PRN (05:07)
[2021-09-25] MEDS: PIPERACILLIN/TAZOB 3.375 GM 3.375 GM in DEXTROSE 5%-WATER - 50 ML IVPB SCH ×3 (05:07→21:10)
[2021-09-25] MEDS: ASCORBIC ACID 500 MG TABLET (FP) PO SCH ×2 (09:19→21:11)
[2021-09-25] MEDS: PANTOPRAZOLE 40 MG TABLET PO SCH (09:19)
[2021-09-25] MEDS: LOSARTAN POTASSIUM 50 MG TABLET PO SCH (09:19)
[2021-09-25] MEDS: FUROSEMIDE 40 MG TABLET (FP) PO SCH (09:19)
[2021-09-25] MEDS: FINASTERIDE 5 MG TABLET (FP) PO SCH (09:19)
[2021-09-25] MEDS: ZINC SULFATE 220 MG CAPSULE (FP) PO SCH (09:19)
[2021-09-25] MEDS: CHOLECALCIFEROL (VIT D3) 5000 UNITS (125 MCG) CAP PO SCH (09:20)
[2021-09-25] MEDS: VITAMIN A 10,000 UNITS (3000 MCG) CAPSULE PO SCH (09:20)
[2021-09-25 09:41] LABS: INR 2.2 (0.83-1.09); PROTHROMBIN TIME (PATIENT) 25.5 SEC (9.7-13.0)
[2021-09-25] MEDS ORDERED: WARFARIN NA 5 MG TABLET PO ONE (18:00)
[2021-09-25] MEDS: TERAZOSIN HCL 5 MG CAPSULE PO SCH (21:11)
[2021-09-25] MEDS: MELATONIN 5 MG TABLETS PO PRN (21:11)
[2021-09-26] MEDS ORDERED: PIPERACILLIN/TAZOBACTAM 3.375 GM VIAL IVPB ONE ×3 (04:48→17:23)
[2021-09-26] MEDS ORDERED: DEXTROSE 5%-WATER - 50 ML IVPB ONE ×3 (04:49→17:23)
[2021-09-26] MEDS: PIPERACILLIN/TAZOB 3.375 GM 3.375 GM in DEXTROSE 5%-WATER - 50 ML IVPB SCH ×3 (05:04→18:01)
[2021-09-26] MEDS: FUROSEMIDE 40 MG TABLET (FP) PO SCH (09:27)
[2021-09-26] MEDS: ASCORBIC ACID 500 MG TABLET (FP) PO SCH ×2 (09:27→21:24)
[2021-09-26] MEDS: LOSARTAN POTASSIUM 50 MG TABLET PO SCH (09:27)
[2021-09-26] MEDS: ZINC SULFATE 220 MG CAPSULE (FP) PO SCH (09:28)
[2021-09-26] MEDS: CHOLECALCIFEROL (VIT D3) 5000 UNITS (125 MCG) CAP PO SCH (09:28)
[2021-09-26] MEDS: PANTOPRAZOLE 40 MG TABLET PO SCH (09:28)
[2021-09-26] MEDS: FINASTERIDE 5 MG TABLET (FP) PO SCH (09:28)
[2021-09-26] MEDS: VITAMIN A 10,000 UNITS (3000 MCG) CAPSULE PO SCH (09:28)
[2021-09-26 09:34] LABS: BASO % 1.7 % (0-2.0); EOS % 3.7 % (0-4.5); HEMATOCRIT 38.7 % (35.4-49); HEMOGLOBIN 12.7 GM/dL (11.7-16.9); LYMPH % 9.7 % (8-40); MCH 38.9 pg (25.7-33.7); MCHC 32.8 g/dl (32.0-35.9); MEAN CELL VOLUME 118.6 fl (80-96); MEAN PLT VOLUME 7.6 fl (7.5-11.1); MONO % 11.6 % (3.8-10.2); NEUT % 73.3 % (42.8-82.8); PLATELET COUNT 904 10^3/uL (134-434); RBC 3.26 M/mm3 (4.00-5.60); RDW 14.2 % (11.9-15.9); WHITE BLOOD COUNT 5.2 K/mm3 (4.0-10.0)
[2021-09-26 09:39] LABS: INR 2.81 (0.83-1.09); PROTHROMBIN TIME (PATIENT) 32.6 SEC (9.7-13.0)
[2021-09-26 11:31] LABS: ANISOCYTOSIS 2+; MACROCYTOSIS 2+; OVALOCYTE 1+; PLATELET ESTIMATE INCREASED
[2021-09-26] MEDS ORDERED: AMOX TR/POT CLAV 875MG/125MG TABLETS (FP) PO SCH (17:30)
[2021-09-26] MEDS ORDERED: WARFARIN NA 2.5 MG TABLET PO ONE (18:00)
[2021-09-26] MEDS: TERAZOSIN HCL 5 MG CAPSULE PO SCH (21:24)
[2021-09-26] MEDS: MELATONIN 5 MG TABLETS PO PRN (21:24)
[2021-09-26] MEDS: ACETAMINOPHEN 325 MG TABLET (FP) PO PRN (21:25)
[2021-09-27] MEDS ORDERED: PIPERACILLIN/TAZOBACTAM 3.375 GM VIAL IVPB ONE ×2 (00:24→10:01)
[2021-09-27] MEDS ORDERED: DEXTROSE 5%-WATER - 50 ML IVPB ONE ×2 (00:24→10:01)
[2021-09-27] MEDS: PIPERACILLIN/TAZOB 3.375 GM 3.375 GM in DEXTROSE 5%-WATER - 50 ML IVPB SCH ×2 (01:01→10:16)
[2021-09-27 09:14] LABS: INR 3.55 (0.83-1.09); PROTHROMBIN TIME (PATIENT) 41.4 SEC (9.7-13.0)
[2021-09-27 10:15] VITALS: BP 149/69; PULSE 90; TEMP 98.2
[2021-09-27] MEDS: ASCORBIC ACID 500 MG TABLET (FP) PO SCH (10:15)
[2021-09-27] MEDS: PANTOPRAZOLE 40 MG TABLET PO SCH (10:15)
[2021-09-27] MEDS: FINASTERIDE 5 MG TABLET (FP) PO SCH (10:15)
[2021-09-27] MEDS: VITAMIN A 10,000 UNITS (3000 MCG) CAPSULE PO SCH (10:16)
[2021-09-27] MEDS: FUROSEMIDE 40 MG TABLET (FP) PO SCH (10:16)
[2021-09-27] MEDS: ZINC SULFATE 220 MG CAPSULE (FP) PO SCH (10:16)
[2021-09-27] MEDS: LOSARTAN POTASSIUM 50 MG TABLET PO SCH (10:16)
[2021-09-27] MEDS: CHOLECALCIFEROL (VIT D3) 5000 UNITS (125 MCG) CAP PO SCH (10:17)
[2021-09-27] MEDS ORDERED: WARFARIN NA 2.5 MG TABLET PO SCH (12:30)
[2021-09-27] MEDS ORDERED: AMOX TR/POT CLAV 875MG/125MG TABLETS (FP) PO SCH (17:30)
[2021-09-28] MEDS ORDERED: WARFARIN NA 2.5 MG TABLET PO SCH (18:00)
[2021-09-29] MEDS ORDERED: WARFARIN NA 5 MG TABLET PO SCH (18:00)
== END 2021-09-27 18:58 | disposition home health service (06) | DRG 464 ==
LOC: JER 13:39 → JERBED 15:04 → J6S 09-11 18:53
PROVIDERS: ADMIT Internal Medicine; ATTEND Internal Medicine
PROC: 0JBQ0ZZ Excision of Right Foot Subcutaneous Tissue and Fascia, Open Approach (ICD-10-PCS; 2021-09-21)
PROC: 0Y6R0Z0 Detachment at Right 2nd Toe, Complete, Open Approach (ICD-10-PCS; principal; 2021-09-21 07:30)
DX: M86.171 Other acute osteomyelitis, right ankle and foot (principal); I96 Gangrene, not elsewhere classified; L03.115 Cellulitis of right lower limb; I10 Essential (primary) hypertension; N40.0 Benign prostatic hyperplasia without lower urinary tract symptoms; Z86.711 Personal history of pulmonary embolism; Z79.01 Long term (current) use of anticoagulants; E78.5 Hyperlipidemia, unspecified; M62.81 Muscle weakness (generalized); I87.2 Venous insufficiency (chronic) (peripheral)
CPT/HCPCS: 36415; 73630-TC-RT-FY; 73718-TC-RT; 80048; 80053; 80061; 82607; 85025; 85610; 85730; 86850; 86900; 86901; 87040; 87070; 87186; 87205; 87804; 88305-TC; 88311-TC; 90686; 93005; 93010; 93922; 93925-TC; 97116-GP; 97161-GP; 99285-25; C9803; G0008; G0463-25; U0003; U0005